=== PATIENT | male | born 1980 | race African-American/Black ===

== ENCOUNTER 2021-08-21 00:15 | Emergency (ER) | payer OTHER ==
[~2021-08-21] VITALS: Ht 170.2 cm; Wt 108.9 kg
[2021-08-21 00:26] VITALS: BP 142/75
--- NOTE | 2021-08-21 00:30 | NUR ---
PATIENT BIBS C/O HAVING CHILLS, DIARRHEA, SOB, FATIGUE, BODYACHES, SORETHRAT COUGH AND CONGESTION X3 DAYS. PATIENT UNVACCINATED TO COVID. ALERT AND ORIENTED X4. AMBULATORY WITH NON LABORED BREAHITNG.
== END 2021-08-21 01:47 | disposition home or self-care (01) ==
LOC: ER 00:18
DX: B34.9 Viral infection, unspecified (principal); Z20.822 Contact with and (suspected) exposure to COVID-19; J45.909 Unspecified asthma, uncomplicated
CPT/HCPCS: 71045; 87426; 99284; C9803